=== PATIENT | male | born 1960 | race Caucasian/White ===

== ENCOUNTER 2019-08-20 07:44 | Outpatient (CLI) | payer BC ==
--- NOTE | 2019-08-20 09:04 | MRI ---
MRI lumbar spine noncontrast HISTORY: Low back pain. Central canal stenosis. FINDINGS: There is partial sacralization of the fifth lumbar segment. Normal-appearing conus medullar is terminates at the L1 level. Vertebral body heights are maintained. There is desiccation of all of the intervertebral discs. Scatt ered discogenic endplate changes within the bone marrow. T12-L1, L1-2, L2-3: Mild osteophytosis of the facets. The central canal and neural foramina are paten t. L3-4: Disc space narrowing. Posterior disc bulge and circumferential degenerative changes. Fluid in e ach facet with prominent osteophytosis. Severe stenosis of the central canal. Moderate bilateral foraminal stenoses. L4-5: Posterior disc protrusion is slightly greater to the right of midline, effacing the thecal sac and origin of the right L5 nerve root. There are also circumferential degenerative changes with osteophytosis. Fluid within the facets. Severe stenosis of the central canal. Moderate right and mild left foraminal stenoses. L5-S1: Mild right posterolateral disc protrusion and annular fissure. Slight effacement of the origin of the right S1 nerve root. Degenerative changes of the facets. Thecal sac and left neural foramen are patent. Mild stenosis of the right neural foramen. IMPRESSION : Multilevel degenerative changes throughout the lumbar spine as detailed above. Stenosis most severe a t the central canal L3-4 level.
== END 2019-08-20 07:45 | disposition home or self-care (01) ==
LOC: BICMRI 07:44
PROVIDERS: ATTEND Family Medicine
DX: M48.062 Spinal stenosis, lumbar region with neurogenic claudication (principal); M47.816 Spondylosis without myelopathy or radiculopathy, lumbar region; M47.817 Spondylosis without myelopathy or radiculopathy, lumbosacral region
CPT/HCPCS: 72148

== ENCOUNTER 2020-08-17 07:54 | Outpatient (CLI) | payer BC | END 2020-08-17 07:55 | disposition home or self-care (01) | LOC: TBSIIMAG 07:54 | PROVIDERS: ATTEND Surgery | DX: M48.062 Spinal stenosis, lumbar region with neurogenic claudication (principal); M47.26 Other spondylosis with radiculopathy, lumbar region; M54.5 Low back pain; M47.817 Spondylosis without myelopathy or radiculopathy, lumbosacral region; M47.815 Spondylosis without myelopathy or radiculopathy, thoracolumbar region | CPT/HCPCS: 72148 ==

== ENCOUNTER 2020-08-27 08:33 | Outpatient (CLI) | payer BC ==
[2020-08-27 10:07] LABS: Hemoglobin 15.3 g/dL (13.5-17.5); Mean Corpuscular HGB CONC 33.2 g/dL (32.0-36.0); Mean Corpuscular Hemoglobin 30.3 pg (27.0-33.0); Mean Corpuscular Volume 91.3 fl (81.2-95.1); Mean Platelet Volume 10.6 fl (7.4-10.4); Platelet Count 255 10x3/uL (150-450); RBC Distribution Width 13.2 % (11.5-14.5); Red Blood Cell (RBC) Count 5.05 10x6/uL (4.32-5.72); White Blood Cell (WBC) Count 7.3 10x3/uL (3.5-10.5)
[2020-08-27 10:43] LABS: PTT 28.1 sec (22.0-33.0); Prothrombin Time 11.5 sec (9.5-12.1)
[2020-08-27 11:10] LABS: Anion Gap 14 mmol/L (10-20); BUN (Urea Nitrogen) 17 mg/dL (8.4-25.7); Calc. Creatinine Clearance 0 mL/min (70-130); Calcium 9.5 mg/dL (7.8-10.44); Carbon Dioxide 26 mmol/L (22-29); Chloride 106 mmol/L (98-107); Glucose 105 mg/dL (70-105); Potassium 4.7 mmol/L (3.5-5.1); Sodium 141 mmol/L (136-145)
[2020-08-28 00:56] LABS: SARS-CoV-2 PCR by NAA Not Detected (NotDetected)
== END 2020-08-27 08:34 | disposition home or self-care (01) ==
LOC: LABBT 08:33
PROVIDERS: ATTEND Surgery
DX: Z01.818 Encounter for other preprocedural examination (principal); Z20.822 Contact with and (suspected) exposure to COVID-19; M54.16 Radiculopathy, lumbar region; M48.062 Spinal stenosis, lumbar region with neurogenic claudication
CPT/HCPCS: 80048; 85027; 85610; 85730; 87635; U0003; U0005

== ENCOUNTER 2020-09-01 07:57 | Day surgery (SDC) | payer BC ==
[2020-08-27 14:46] VITALS: BMI 38.5
[2020-09-01] MEDS ORDERED: Midazolam HCl 2 mg/2 ml Vial ONE (08:42)
[2020-09-01] MEDS ORDERED: Thrombin 5000 UNITS/5 ML VIAL ONE (09:34)
[2020-09-01] MEDS ORDERED: Fentanyl 250 MCG/5 ML VIAL ONE (09:46)
[2020-09-01] MEDS ORDERED: Glycopyrrolate 0.2 MG/ML 5 ML SYRINGE ONE (10:07)
[2020-09-01] MEDS ORDERED: Ketorolac Tromethamine 30 MG/ML VIAL ONE (10:07)
[2020-09-01] MEDS ORDERED: Ondansetron PF 4 MG/2 ML Vial ONE (10:07)
[2020-09-01] MEDS ORDERED: Rocuronium Bromide 10 MG/ML (10ML VIAL) ONE (10:07)
[2020-09-01] MEDS ORDERED: PROPOFOL 200 MG/20 ML VIAL ONE (10:07)
[2020-09-01] MEDS ORDERED: Lidocaine 1% PF 5 ML VIAL ONE (10:07)
[2020-09-01] MEDS ORDERED: PHENYLEPHRINE-NS 100 MCG/ML 10 ML SYRINGE ONE (10:07)
[2020-09-01] MEDS ORDERED: Dexamethasone 20 MG/5 ML VIAL ONE (10:07)
[2020-09-01] MEDS ORDERED: Morphine 2 MG/ML VIAL SLOW IVP PRN (10:13)
[2020-09-01] MEDS ORDERED: Acetaminophen 325 MG TAB PO PRN (10:13)
[2020-09-01] MEDS ORDERED: Acetaminophen/Codeine 30-300mg Tablet PO PRN (10:13)
[2020-09-01] MEDS ORDERED: tiZANidine HCl 4 MG TAB PO PRN (10:13)
[2020-09-01] MEDS ORDERED: traMADol HCl 50 MG TAB PO PRN (10:13)
[2020-09-01] MEDS ORDERED: hydrALAZINE 20 MG/ML VIAL SLOW IVP PRN (10:17)
[2020-09-01] MEDS ORDERED: Promethazine HCl 25 MG/ML VIAL SLOW IVP PRN (12:52)
[2020-09-01] MEDS ORDERED: Promethazine HCl 25 MG/ML VIAL IM PRN (12:52)
[2020-09-01] MEDS ORDERED: Ondansetron HCl/PF 4 MG/2 ML Vial IVP PRN (12:52)
[2020-09-01] MEDS ORDERED: Fentanyl 100 MCG/2 ML VIAL ONE ×2 (13:03→13:34)
[2020-09-01] MEDS ORDERED: HYDROmorphone 0.5 MG/0.5 ML SYRINGE ONE ×2 (13:53→15:33)
[2020-09-01] MEDS: Sodium Chloride 0.9% 1,000 ML IV SCH (17:25)
[2020-09-01] MEDS: Mometasone 200 MCG/Formoterol 5 MCG 120 PUFF INHALER INH SCH (18:42)
[2020-09-01] MEDS: CEFAZOLIN 2 GM in Premix Bag 1 BAG IVPB SCH (19:12)
[2020-09-01] MEDS: Gabapentin 300 MG CAP PO SCH (19:32)
[2020-09-01] MEDS: HYDROcodone/Acetaminophen 7.5/325 mg Tablet PO PRN (19:34)
[2020-09-02] MEDS: Sodium Chloride 0.9% 1,000 ML IV SCH (02:34)
[2020-09-02] MEDS: CEFAZOLIN 2 GM in Premix Bag 1 BAG IVPB SCH (02:34)
[2020-09-02] MEDS: Mometasone 200 MCG/Formoterol 5 MCG 120 PUFF INHALER INH SCH (07:12)
[2020-09-02] MEDS: HYDROcodone/Acetaminophen 7.5/325 mg Tablet PO PRN (08:35)
[2020-09-02] MEDS: Gabapentin 300 MG CAP PO SCH (08:37)
[2020-09-02] MEDS ORDERED: Lisinopril/Hydrochlorothiazide 20 mg/12.5 mg Tablet PO SCH (09:00)
[2020-09-02 11:10] VITALS: BP 155/88; TEMP 98.6
== END 2020-09-02 11:24 | disposition home or self-care (01) ==
LOC: SDC 07:57 → T4-B 10:13 → SDC 09-02 11:24
PROVIDERS: ATTEND Surgery
PROC: 01NB0ZZ Release Lumbar Nerve, Open Approach (ICD-10-PCS; principal; 2020-09-01)
DX: M48.062 Spinal stenosis, lumbar region with neurogenic claudication (principal); M54.16 Radiculopathy, lumbar region; I10 Essential (primary) hypertension; J45.909 Unspecified asthma, uncomplicated; F17.290 Nicotine dependence, other tobacco product, uncomplicated; E66.9 Obesity, unspecified; Z68.38 Body mass index [BMI] 38.0-38.9, adult; Z79.899 Other long term (current) drug therapy; Z91.018 Allergy to other foods
CPT/HCPCS: 76000; 94640; J0690; J1100; J1170; J1885; J2250; J2270; J2405; J2704; J3010; J3370; J7620

== ENCOUNTER 2023-02-02 09:47 | Outpatient (CLI) | payer BC | END 2023-02-02 09:48 | disposition home or self-care (01) | LOC: SCSRAD 09:47 | PROVIDERS: ATTEND Physician Assistant | DX: M25.561 Pain in right knee (principal); M17.11 Unilateral primary osteoarthritis, right knee; M25.461 Effusion, right knee ==